=== PATIENT | female | born 1945 | race Caucasian/White ===

== ENCOUNTER → 2016-06-03 | Outpatient (CLI) | payer OTHER ==
[~2016-06-03] MED LIST: ALEN35TA6 PO; DICL100G7 TP; HYDR12.53 PO; IOHEXOL 300 MG/ML 100ML VIAL. IV ONE; RANI150C PO; SERT25TA PO
--- NOTE | 2016-06-03 15:01 | KCIC ---
PROCEDURE CT scan of the chest with contrast 06/03/2016 HISTORY Significant smoking history with right hilar prominence and suspicious right lower lobe abnormality seen on chest radiograph. TECHNIQUE After the intravenous administration of 95 cc of Omnipaque 300, contiguous, 5 millimeter axial sections were obtained through the chest. One or more of the following individualized dose reduction techniques were utilized for this study: 1. Automated exposure control. 2. Adjustment of the mA and/or kV according to patient size. 3. Use of iterative reconstruction technique. FINDINGS No previous studies are available for comparison. Mild to moderate atheromatous/atherosclerotic plaque formation is seen involving the thoracic aorta and its branches. The thoracic aorta is tortuous but tapers normally. There is a moderate-sized sliding hiatal hernia. The heart is borderline enlarged. Scattered coronary artery calcifications are seen. Enlarged right hilar lymph nodes are seen which measure 2.3 to 2.7 centimeters in size. Mildly enlarged mediastinal lymph nodes are seen which measure 1 to 2.5 centimeters in size. An irregular masslike opacity is seen involving the right lower lobe inferior and slightly lateral to the right hilum which measures 2.7 x 2.2 x 2.2 centimeters in transverse, AP and craniocaudal dimensions. This mass is concerning for bronchogenic carcinoma with spread to the right hilum and mediastinum. A 1.4 centimeter noncalcified mass is seen involving the inferolateral aspect of the right lower lobe. A 1.3 centimeter noncalcified mass is seen involving the lateral aspect of the right middle lobe. A 5 millimeter noncalcified nodule is seen involving the medial aspect of the right lower lobe. These are concerning for pulmonary metastasis. No additional pulmonary nodule is seen. Moderate bullous emphysematous changes are seen throughout both lungs. No area of consolidation is seen. No pneumothorax or pleural effusion is noted. Images through the upper abdomen demonstrate moderate atherosclerotic calcification involving the abdominal aorta. A 1.1 centimeter low attenuation lesion is seen involving the right adrenal gland. This likely represents an adrenal adenoma. A 1.5 centimeter area of nodularity is seen involving the left adrenal gland which may represent an adrenal adenoma. Degenerative changes are seen throughout the thoracic spine. IMPRESSION 2.7 centimeter masslike opacity is seen involving the right lower lobe. Enlarged right hilar and mediastinal lymph nodes are seen. These findings are concerning for bronchogenic carcinoma with spread to the right hilum and mediastinum. Three noncalcified nodule/masses are seen involving the right lower lobe and right middle lobe concerning for pulmonary metastasis. Electronically signed by: Daniel Sorto MD (Jun 03, 2016 14:59:55)
--- NOTE | 2016-06-03 15:18 | KCIC ---
Bilateral digital screening mammograms with CAD: HISTORY COMPARISON Comparison is made to previous studies dated 11/24/2014 and 08/13/2013. FINDINGS Breast density category B. The skin and nipples show no abnormalities. No abnormal lymph nodes are seen in the axilla. The breast parenchyma shows scattered fibroglandular density. There appears to be some focally increase in density in the central left breast on CC view. No definite correlate is seen on obliques view. Further evaluation however with additional coned compression CC view and lateral view and ultrasound is recommended. There are no other dominant masses, suspicious calcifications or architectural distortions. Benign appearing calcifications are present IMPRESSION Focally increased nodularity suggested centrally in the left breast on CC view. Recommend further evaluation with additional cone compression views and ultrasound. This study was interpreted with the benefit of Computerized Aided Detection (CAD). Mammography is not 100% sensitive in detecting breast cancer. Therefore, a self breast exam and a clinical breast exam are very important. A negative mammogram does not negate a clinically suspicious finding and should not result in a delay in biopsying a clinically suspicious abnormality. BI-RADS category 0: Incomplete. Additional imaging is recommended. This patient's information has been entered into a reminder system for the patient to be notified with the results of this examination and a target date for her next mammograms. Electronically signed by: Brittney Munoz MD (Jun 03, 2016 15:17:04)
== END | disposition home or self-care (01) ==
LOC: KCIC MAMMO 13:11
PROVIDERS: ATTEND Family Medicine
DX: Z12.31 Encounter for screening mammogram for malignant neoplasm of breast (principal)
CPT/HCPCS: 71260; G0202; Q9967; 77067

== ENCOUNTER → 2016-06-15 | Day surgery (SDC) | payer OTHER ==
[~2016-06-15] MED LIST changes: +ALBUTEROL SULFATE 2.5 MG/3 ML NEBU. NEB ONE; +FENTANYL PF 100 MCG/2 ML VIAL. IV PRN; +HYDROMORPHONE 2 MG/ML VIAL. IV PRN; -IOHEXOL 300 MG/ML 100ML VIAL. IV ONE; +IV RINGERS,LACTATED 1000ML 1,000 ML IV SCH; +LIDOCAINE 1% 1 ML SYRINGE. ID PRN; +MORPHINE SULFATE 2 MG/ML DISP.SYRIN. IV PRN; +ONDANSETRON PF 4 MG/2 ML VIAL. IV PRN; +PROCHLORPERAZINE 10 MG/2 ML VIAL. IV PRN
[2016-06-15 13:58] LABS: BASO # 0.1 x10^3/uL (0.0-0.2); BASO % 1 % (0-3); EOS % 4 % (0-3); HEMATOCRIT 42.1 % (36.0-47.0); HEMOGLOBIN 13.7 g/dL (12.0-15.5); LYMPH # 2.2 x10^3/uL (1.0-4.8); LYMPH % 31 % (24-48); MEAN CORPUSCULAR HEMOGLOBIN 28 pg (25-35); MEAN CORPUSCULAR HGB CONC 33 g/dL (31-37); MEAN CORPUSCULAR VOLUME 86 fL (79-100); MONO % 7 % (0-9); NEUT % 57 % (31-73); PLATELET COUNT 240 x10^3/uL (140-400); RED BLOOD COUNT 4.89 x10^6/uL (3.50-5.40); RED CELL DISTRIBUTION WIDTH 16.1 % (11.5-14.5); WHITE BLOOD COUNT 7.1 x10^3/uL (4.0-11.0)
[2016-06-15 14:05] LABS: INR 1.1 (0.8-1.1); PROTHROMBIN TIME PATIENT 13.7 SEC (11.7-14.0)
[2016-06-15 16:00] VITALS: BP 148/78
--- NOTE | 2016-06-15 20:44 | OP ---
DATE OF SURGERY: 06/15/2016 PROCEDURE: Bronchoscopy, forceps biopsies of right middle lobe bronchus lesion within the right middle lobe bronchus x 4. Lavage of the right side. INDICATIONS: The patient presented with chronic cough, abnormal CT revealing 2.7 cm mass involving the right lower lobe. There was enlargement of the right hilar and mediastinal lymph nodes undergoing diagnostic bronchoscopy. Risks, benefits, and alternatives reviewed with patient. She consented. SEDATION: Please see anesthesia's notes. DESCRIPTION OF PROCEDURE: Timeout was performed prior to sedation. Vital signs and O2 saturation were maintained within normal limits throughout the procedure. The bronchoscope was then passed through the left naris. The vocal cords were identified moving bilaterally without any dysfunction. Vocal cords were then anesthetized with a total of 5 mL of 4% lidocaine. The bronchoscope was passed through the vocal cords into the proximal trachea, which was normal. The distal trachea was likewise normal. The left segments and subsegments were all inspected. There was no endobronchial lesion. The right segments were inspected. There was mucus plugging within the basal segments. At the opening of the right middle lobe bronchus, there was endobronchial lesion, white and fungating in appearance. The scope was advanced through that site. Multiple biopsies utilizing forceps were performed with a total of 4. Lavage of the area was likewise performed. The patient tolerated the procedure well with no immediate complications. FINDINGS: 1. Normal vocal cords. 2. No endobronchial lesion on the left. 3. Endobronchial lesion within the right middle lobe segment, white and fungating in appearance. Multiple biopsies were performed. 4. Mucous plugging in the basal segments on the right. PLAN: We will await the results of the biopsies and the lavage fluid, suspect bronchogenic carcinoma. The patient tolerated the procedure well with no immediate complications. SUKH HAN MD DR: AYAKA/quentin JOB#: [id number] / [id number] LIZBETH Martinez MD
--- NOTE | 2016-06-17 14:38 | PATHOLOGY ---
CYTOPATHOLOGY REPORT CLINICAL HISTORY: Lung mass. See also [id number]. SPECIMEN(S) RECEIVED: A.Bronchoalveolar lavage, RML FINAL DIAGNOSIS: Right middle lobe bronchoalveolar lavage, ThinPrep: - No malignant cells identified. -Sparsely cellular specimen comprised of bronchial epithelial cells and few squamous epithelial cells and pulmonary macrophages within a background of lysed red blood cells and few inflammatory cells. (JPM:mgr; d/t: 06/17/16) PATHOLOGIST: Teddy Christianson M.D. REPORT ELECTRONICALLY SIGNED BY: Teddy Christianson M.D. DATE/TIME: 06/17/2016 14:15 GROSS PATHOLOGY: A. Bronchoalveolar lavage, RML: The specimen is submitted fixed, labeled "Kelsey Redman". Received by the Cytology Department is 40 mL of clear red fluid. One ThinPrep slide was prepared. (clt 06.16.2016) MS SQL DEVELOPER(S): MUMTAZ Morales([facility]) INITIAL CPT CODE(S): A; 41656 Professional services performed [place] [facility] [place] [address] Technical services performed by [facility] at [address] [place] [address], [address] [address]. PATIENT: KELSEY REDMAN /AGE: 912/31/1945 (Age: 70) SEX: F PATIENT #: [id number] ALT CASE #: SPECIMEN COLLECTION DATE: 06/15/2016 SPECIMEN RECEIVED DATE: 06/16/[address] [facility] [address] [place] [address], [address] [place] [address] PHONE: [phone] DIRECTOR: Steve Roblero M.D. * * * END OF REPORT * * *
--- NOTE | 2016-06-20 14:01 | PATHOLOGY ---
PATHOLOGY REPORT * * * * * * * * FINAL DIAGNOSIS: Bronchial biopsy, right middle lobe: - SMALL CELL CARCINOMA. SEE COMMENT. - Chronic bronchitis with focal squamous metaplasia. COMMENT: Sections of the right middle lobe bronchial biopsy reveal several segments of bronchial mucosa. There is chronic inflammation with focal squamous metaplasia. Two of the biopsy segments reveal a malignant epithelial neoplasm. The malignant cells are present in solid nests which undermine the surface metaplastic squamous epithelium. The malignant cells are of small to intermediate size. The malignant cells have a relatively high N/C ratio, and have scanty to small amounts of pale eosinophilic cytoplasm. The malignant cells possess rounded to ovoid nuclei having a finely dispersed chromatin with inconspicuous or small nucleoli. Mitotic figures are present. There is no evidence of keratinization or glandular differentiation. A panel of immunohistochemical stains is obtained and yields the following results: Cytokeratin 7: tumor cells positive Cytokeratin 5/6: tumor cells negative; surface metaplastic epithelium positive P63: tumor cells negative; surface metaplastic epithelium positive P40: tumor cells negative; surface metaplastic epithelium positive Napsin A: tumor cells negative CD56: tumor cells positive TTF-1: tumor cells positive The morphologic and immunophenotypic findings are supportive of the diagnosis of small cell carcinoma. The case is also examined by Dr. Duane Ken, who concurs with the diagnosis. The results are reported to Dr. Carrera on 06/20/16 at 2:00 PM. (JPM:; d/t: 06/20/16) Special Stains Performed: Napsin A, CK7, P40, CK5/6, P63, CD56, TTF-1. REPORT ELECTRONICALLY SIGNED BY: Teddy Christianson M.D. DATE/TIME: 06/20/2016 14:00 * * * * * * * * GROSS PATHOLOGY: The specimen is received in formalin, labeled "Shantell Redman and L BBX." Received is a 0.5 x 0.4 x 0.2 cm aggregate of haque-brown, rubbery, and irregular soft tissue fragments. The specimen is entirely submitted in cassette A1. (TTL; 06/16/2016) INITIAL CPT CODE(S): A; 87604, 05817, 19787, 62196, 18381, 13094, 74317, 00041 Professional services performed by [facility] [place] [address] Technical services performed by [facility] at [address] [place] [address], [address], [place] [address]. SPECIMEN(S) RECEIVED: A.Bronchial biopsy [facility] CLINICAL HISTORY: Lung nodule/ lung mass PATIENT: SHANTELL REDMAN /AGE: 912/31/1945 (Age: 70) PATIENT #: [id number] ALT CASE #: [id number] SPECIMEN COLLECTION DATE: 06/15/2016 SPECIMEN RECEIVED DATE: 06/16/2016 [facility] - [address] [place] [address] - PHONE: [phone] * * * END OF REPORT * * *
== END | disposition home or self-care (01) ==
LOC: SURG 12:48
PROVIDERS: ATTEND Internal Medicine Pulmonary Disease
DX: J98.4 Other disorders of lung (principal); I10 Essential (primary) hypertension; M19.90 Unspecified osteoarthritis, unspecified site; K21.9 Gastro-esophageal reflux disease without esophagitis; F41.9 Anxiety disorder, unspecified; F17.200 Nicotine dependence, unspecified, uncomplicated; F32.9 Major depressive disorder, single episode, unspecified; Z87.39 Personal history of other diseases of the musculoskeletal system and connective tissue; Z79.82 Long term (current) use of aspirin; Z79.01 Long term (current) use of anticoagulants
CPT/HCPCS: 31622; 31624; 36415; 85027; 85610; 85730; 87070; 87102; 87205; 88112; 88305; 88341; 88342; 94640; G0641

== ENCOUNTER → 2016-06-16 | Outpatient (CLI) | payer OTHER ==
[2016-06-15 16:00] VITALS: BP 148/78
[~2016-06-16] MED LIST changes: -ALBUTEROL SULFATE 2.5 MG/3 ML NEBU. NEB ONE; -FENTANYL PF 100 MCG/2 ML VIAL. IV PRN; -HYDROMORPHONE 2 MG/ML VIAL. IV PRN; -IV RINGERS,LACTATED 1000ML 1,000 ML IV SCH; -LIDOCAINE 1% 1 ML SYRINGE. ID PRN; +LIDOCAINE 2% PF Vial for OR 5 ML VIAL. ONE; -MORPHINE SULFATE 2 MG/ML DISP.SYRIN. IV PRN; -ONDANSETRON PF 4 MG/2 ML VIAL. IV PRN; -PROCHLORPERAZINE 10 MG/2 ML VIAL. IV PRN; +PROPOFOL 40 ML IV ONE
--- NOTE | 2016-06-16 12:13 | RAD ---
Exam performed: Nuclear medicine PET scan. History: [Lung mass history of significant smoking]. Date of service: 06/16/16. Comparison: CT chest with contrast from 06/03/16. Technique: Patient was injected 13.9 mCi of F-18 FDG intravenously and delayed whole-body images are obtained from the skull base to the mid thighs. Corresponding noncontrast enhanced images are obtained for the purposes of attenuation correction and anatomical correlation. Patient's fasting blood glucose level at the time of injection measures 116 mg/dL. Findings: There is a 1.3 cm pleural-based mass in the right upper lobe, axial image 155, series 3 demonstrating SUV value of 7.1. There is also a somewhat lobulated 2.5 cm mass in the right lower lobe demonstrating SUV value up to 8.6 (axial image 169, series 3), there are streaky linear opacity extending from this mass up to the enlarged right hilar mass/lymph node mass. There is also a 1.5 cm mass in the posterior right lower lobe at the costophrenic sulcus with increased SUV value of 6.9 (axial image 178, series 3). There is a right suprahilar lymph node measuring 2.0 cm demonstrating SUV value of 13.1. Large hilar mass or lymph node, the exact size of which is difficult to measure due to lack of IV contrast demonstrates SUV value of up to 8.7. The visualized portion of the brain appears normal. No hypermetabolic activity is seen. No hypermetabolic activity seen in the neck, abdomen or pelvis. The paranasal sinuses appear clear. No neck masses or fluid collections are seen. There are subcentimeter pretracheal and precarinal lymph nodes. Diffuse emphysematous changes are seen in the lungs. Coarse interstitial markings in both lung bases probably related to pulmonary fibrosis. These do not demonstrate any abnormal hypermetabolic activity on the PET scan. Mild atheromatous coronary calcification. No abdominal masses or fluid collections. Scattered stool in the colon. Diffuse spondylotic changes are seen involving the cervical, thoracic and lumbar spine. Impression: At least 3 hypermetabolic masses in the right lung with an enlarged hypermetabolic right hilar and suprahilar lymph nodes. Findings may be related to a primary pulmonary/hilar neoplasm with lung and gerald metastasis.
== END | disposition home or self-care (01) ==
LOC: PETSC 07:43
PROVIDERS: ATTEND Internal Medicine Pulmonary Disease
DX: C34.2 Malignant neoplasm of middle lobe, bronchus or lung (principal)
CPT/HCPCS: 78815; A9552; J2704

== ENCOUNTER → 2016-06-21 | Outpatient (CLI) | payer OTHER ==
[2016-06-15 16:00] VITALS: BP 148/78
[~2016-06-21] MED LIST changes: -LIDOCAINE 2% PF Vial for OR 5 ML VIAL. ONE; -PROPOFOL 40 ML IV ONE
--- NOTE | 2016-06-21 11:17 | RAD ---
DATE: 06/21/2016 EXAM: Diagnostic mammogram the left breast to include a left breast ultrasound 06/21/2016 HISTORY: Nodular density seen in the left breast on recent screening mammogram. COMPARISON: 06/03/2016 This study was interpreted with the benefit of Computerized Aided Detection (CAD). FINDINGS: Spot compression CC and 2 lateral digital mammograms of the left breast were obtained. Comparison study is dated 06/03/2016. The density compresses out to some degree on the spot compression mammogram. Further evaluation with left breast ultrasound is recommended. A Real-time ultrasound examination of the upper outer quadrant left breast was performed. Multiple images were obtained. Within the left breast at the 2:30 o'clock position and oval-shaped well-defined hypoechoic nodule is seen. This measures 9 mm in greatest diameter. It corresponds to the patient's mammographic abnormality. Its ultrasound appearance most likely represents a fibroadenoma. A repeat ultrasound of the left breast in 6 months is recommended to document stability. IMPRESSION: 9 mm probable fibroadenoma seen within the left breast at the 2:30 position which corresponds to the patient's mammographic abnormality. A repeat ultrasound left breast in 6 months is recommended to document stability of this finding. BI-RADS CATEGORY: 3 PROBABLY BENIGN FINDING(S)-SHORT INTERVAL FOLLOW-UP SUGGESTED RECOMMENDED FOLLOW-UP: 6M 6 MONTH FOLLOW-UP PQRS compliance statement: Patient information was entered into a reminder system with a target due date for a follow-up ultrasound of the left breast in 6 months. Assuming that the ultrasound finding is stable, the patient would be due for routine yearly screening mammogram on 06/03/2017. Mammography is a sensitive method for finding small breast cancers, but it does not detect them all and is not a substitute for careful clinical examination. A negative mammogram does not negate a clinically suspicious finding and should not result in delay in biopsying a clinically suspicious abnormality. "Our facility is accredited by the [employer] Mammography Program."
== END | disposition home or self-care (01) ==
LOC: KCIC MAMMO 09:16
PROVIDERS: ATTEND Family Medicine
DX: R92.8 Other abnormal and inconclusive findings on diagnostic imaging of breast (principal)
CPT/HCPCS: 76641; G0206; 77065

== ENCOUNTER → 2016-09-05 | Outpatient (CLI) | payer OTHER ==
[2016-06-15 16:00] VITALS: BP 148/78
[~2016-09-05] MED LIST changes: +IOHEXOL 300 MG/ML 100ML VIAL. IV ONE
--- NOTE | 2016-09-05 11:34 | KCIC ---
PROCEDURE CT chest with contrast. HISTORY Small cell lung cancer. Follow-up post chemotherapy. TECHNIQUE Helical CT imaging of the chest is performed after 90 cc Omnipaque 300 IV contrast. PQRS: One or more the following individualized dose reduction techniques were utilized for the study: 1. Automated exposure control. 2. Adjustment of the mA and/or kV according to patient size. 3. Use of iterative reconstruction technique. COMPARISON CT chest with contrast, June 03, 2016. FINDINGS Postsurgical change right thyroid. No axillary adenopathy. Subcentimeter mediastinal lymph nodes are stable. Coronary artery disease. Calcific aortic valve stenosis. Cardiac size upper limits of normal. No pericardial effusion. Small to moderate-sized hiatal hernia. Right hilar adenopathy is improved. The largest lymph node now measures 16 x 8 millimeters, image 28; previously 27 x 15 millimeters. No pleural effusion. The central airways are patent. There is moderate centrilobular and paraseptal emphysema. Nodule in the right middle lobe abutting the lateral pleural surface has decreased in size now measuring 10 x 6 millimeters, previously 13 x 9 millimeters. The 5 millimeter medial right lower lobe nodule is not significantly changed, allowing for differences in slice acquisition, image 37. The lobular mass in the right lower lobe has resolved. There is minimal parenchymal opacity in this location, image 39. Nodule in the lateral right lower lobe is mostly resolved, there is a 9 millimeter ground-glass opacity now seen in this location, image 46. No new pulmonary nodule is identified. Mild fatty infiltration of the liver. Left adrenal nodule has decreased in size. Right adrenal probable adenoma is stable. No compression fracture of the thoracic spine. There is degenerative spondylosis. No osteolytic or blastic lesion is identified. IMPRESSION 1. Right lower lobe mass has resolved. 2. Nodules in the right middle lobe and the lateral right lower lobe have decreased in size. Medial right lower lobe nodule is unchanged. 3. Right hilar adenopathy is improved. 4. Left adrenal nodule has decreased in size. This raises possibility of metastasis. 5. Moderate centrilobular and paraseptal emphysema. 6. Small to moderate size hiatal hernia. 7. Mild fatty infiltration of the liver. Electronically signed by: Jayden Tate MD (September 05, 2016 11:33:24)
== END | disposition home or self-care (01) ==
LOC: KCIC CT 09:53
PROVIDERS: ATTEND Internal Medicine Hematology & Oncology
DX: C34.90 Malignant neoplasm of unspecified part of unspecified bronchus or lung (principal); J43.9 Emphysema, unspecified; K44.9 Diaphragmatic hernia without obstruction or gangrene; K76.0 Fatty (change of) liver, not elsewhere classified
CPT/HCPCS: 71260; 82565; Q9967

== ENCOUNTER → 2016-12-05 | Outpatient (CLI) | payer OTHER ==
[2016-06-15 16:00] VITALS: BP 148/78
[~2016-12-05] MED LIST changes: +CONTRAST GIVEN MC PRN; +DICL100G18 TP; -DICL100G7 TP; +IOHEXOL 240 MG/ML 50ML VIAL. PO ONE; -IOHEXOL 300 MG/ML 100ML VIAL. IV ONE; +IOHEXOL 300 MG/ML 75 ML VIAL IV ONE
--- NOTE | 2016-12-05 14:17 | RAD ---
CT chest, abdomen and pelvis with IV contrast Indication: 70-year-old female with small cell carcinoma of lungs. Technique: CT chest, abdomen and pelvis with 75 mL of Omnipaque 350 mL and 50 mL of Omnipaque 240 P.O. with multi planar reformats. Comparison: Prior chest CT from 09/05/2016 Findings: CT chest: Left approach central venous catheter noted with its tear in the SVC. Partial thyroidectomy changes. No axillary adenopathy. Prominent but not pathologically enlarged mediastinal lymph nodes noted. The factory representative lymph node in the pretracheal space measures 8 mm in short axis, previously same. Stable right hilar lymph node measuring 1.8 x 1.0 cm, previously same. Heart is normal in size. Coronary artery calcifications noted. Atherosclerotic disease of the aortic arch noted. No pericardial or pleural effusion. Severe emphysematous changes seen within the lungs. Lung nodules as follows: -Stable 8 mm nodule in the right middle lobe (series 2 image 31). -Stable peripheral 9 mm nodule in the right middle lobe (series 2 images 33). CT abdomen/pelvis: Large sliding hiatal hernia. Liver is normal in morphology without focal hepatic lesion. Spleen within normal limits. No radiopaque gallstones. Pancreas within normal limits. Stable right adrenal nodule. Slight interval decrease in the size of left adrenal nodule measuring 9 mm, previously [address] from 06/03/2016. Kidneys show no hydronephrosis. Stable 6 mm low attenuating lesion within left kidney likely simple cyst. No retroperitoneal or pelvic adenopathy. No bowel obstruction. Uterus is present. No solid adnexal lesions. No free fluid in the pelvis. Bladder is within normal limits. Scattered atherosclerotic disease of aorta. No suspicious bony lesions. Impression: 1. Stable right middle lobe pulmonary nodules. 2. Stable right hilar lymph node. 3. Severe diffuse emphysematous changes. 4. Interval decrease in the size of left adrenal nodule. Stable right adrenal nodule. PQRS Compliance Statement: One or more of the following individualized dose reduction techniques were utilized for this examination: 1. Automated exposure control 2. Adjustment of the mA and/or kV according to patient size 3. Use of iterative reconstruction technique
== END | disposition home or self-care (01) ==
LOC: CT 09:03
PROVIDERS: ATTEND Internal Medicine Hematology & Oncology
DX: C34.91 Malignant neoplasm of unspecified part of right bronchus or lung (principal); D24.2 Benign neoplasm of left breast; I25.10 Atherosclerotic heart disease of native coronary artery without angina pectoris; I70.0 Atherosclerosis of aorta; J43.9 Emphysema, unspecified; K44.9 Diaphragmatic hernia without obstruction or gangrene; E27.8 Other specified disorders of adrenal gland; D70.8 Other neutropenia; N28.89 Other specified disorders of kidney and ureter; R91.8 Other nonspecific abnormal finding of lung field
CPT/HCPCS: 71260; 74177; Q9966; Q9967

== ENCOUNTER → 2017-01-04 | Outpatient (CLI) | payer OTHER ==
[2016-06-15 16:00] VITALS: BP 148/78
[~2017-01-04] MED LIST changes: -CONTRAST GIVEN MC PRN; -IOHEXOL 240 MG/ML 50ML VIAL. PO ONE; -IOHEXOL 300 MG/ML 75 ML VIAL IV ONE
--- NOTE | 2017-01-04 12:54 | RAD ---
Left upper extremity venous ultrasound, 01/04/2017: History: Arm and chest pain Duplex evaluation of the major veins in the left upper extremity was performed including grayscale, color-flow and spectral Doppler analysis. The left internal jugular, subclavian, axillary and paired brachial veins are patent. Patent cephalic and basilic veins are also evident. IMPRESSION: No sonographic evidence of deep vein thrombosis in the left upper extremity.
== END | disposition home or self-care (01) ==
LOC: US 11:49
PROVIDERS: ATTEND Internal Medicine Hematology & Oncology
DX: R07.9 Chest pain, unspecified (principal); M79.602 Pain in left arm
CPT/HCPCS: 93971

== ENCOUNTER → 2017-02-23 | Outpatient (CLI) | payer OTHER ==
[2016-06-15 16:00] VITALS: BP 148/78
--- NOTE | 2017-02-23 14:33 | RAD ---
EXAM: Left breast ultrasound. HISTORY: Six-month follow-up. COMPARISON: None. FINDINGS: Sonographic evaluation of the left breast was performed at the site of prior concern. At the 2:30 position, 3 cm from the nipple, a solid oval hypoechoic nodule measures 7 x 8 x 4 mm. This is stable to slightly decreased since the prior study. Internal flow is no longer seen on Doppler. This is likely a benign fibroadenoma. IMPRESSION: 1. BI-RADS Category 3: Probably benign findings. 2. The focus of concern can be followed with mammography and sonography with the patient returns in June 06, 2017.
== END | disposition home or self-care (01) ==
LOC: KCIC US 13:39
PROVIDERS: ATTEND Family Medicine
DX: N63.20 Unspecified lump in the left breast, unspecified quadrant (principal); F17.200 Nicotine dependence, unspecified, uncomplicated
CPT/HCPCS: 76641

== ENCOUNTER → 2017-03-06 | Outpatient (CLI) | payer OTHER ==
[2016-06-15 16:00] VITALS: BP 148/78
[~2017-03-06] MED LIST changes: +IOHEXOL 240 MG/ML 50ML VIAL. PO ONE; +IOHEXOL 300 MG/ML 100ML VIAL. IV ONE
--- NOTE | 2017-03-06 10:36 | RAD ---
EXAM: CT OF THE CHEST, ABDOMEN AND PELVIS WITH INTRAVENOUS CONTRAST. HISTORY: Small cell carcinoma of lung. TECHNIQUE: Computed tomography of the chest, abdomen and pelvis was performed after the intravenous administration of 75 mL Omnipaque 300. COMPARISON: 12/05/2016. FINDINGS: Bone windows reveal no suspicious lesions. A lymph node posteriorly along the right hilum has increased in size since the prior study. Transaxially it measures 14 x 13 mm as compared with 10 x 8 mm previously. Other small right hilar lymph nodes are unchanged. Lower right paratracheal lymph nodes are also stable. There is no pleural or pericardial effusion. The heart is not enlarged. There are atherosclerotic calcifications of the coronary arteries. Aortic valve calcifications are also noted. There is a large hiatal hernia. There is moderate to severe centrilobular emphysema. Interstitial line thickening is noted in the costophrenic angles on the right greater than left. An uncalcified pleural-based nodule in the right middle lobe measures 10 mm as compared with 8 mm previously. Another vaguely nodular opacity in the right costophrenic angle measures 9 mm and is not clearly changed. The right thyroid lobe is surgically absent. There is a subcentimeter cyst in the left kidney. The liver, gallbladder, pancreas, adrenal glands and spleen are unremarkable. There are no pathologically enlarged lymph nodes. Left colonic diverticulosis is mild. There is no obstruction or ascites. IMPRESSION: 1. A pleural-based right middle lobe nodule has increased in size and now measures 10 mm. 2. A right posterior hilar lymph node has also increased and now measures 14 mm as compared with 10 mm previously. 3. Moderate to severe centrilobular emphysema with interstitial lung disease in the bases. 4. Large hiatal hernia. *One or more of the following individualized dose reduction techniques were utilized for this examination: 1. Automated exposure control. 2. Adjustment of the mA and/or kV according to patient size. 3. Use of iterative reconstruction technique.
== END | disposition home or self-care (01) ==
LOC: CT 08:06
PROVIDERS: ATTEND Internal Medicine Hematology & Oncology
DX: C34.91 Malignant neoplasm of unspecified part of right bronchus or lung (principal); J84.9 Interstitial pulmonary disease, unspecified; K44.9 Diaphragmatic hernia without obstruction or gangrene; J43.2 Centrilobular emphysema; K57.30 Diverticulosis of large intestine without perforation or abscess without bleeding
CPT/HCPCS: 71260; 74177; Q9966; Q9967

== ENCOUNTER → 2017-08-25 | Outpatient (CLI) | payer OTHER ==
[~2017-08-25] MED LIST changes: -ALEN35TA6 PO; +CONTRAST GIVEN MC; -DICL100G18 TP; +HEPARIN PF 500 UNIT/5 ML DISP.SYRIN. IV; -HYDR12.53 PO; -IOHEXOL 240 MG/ML 50ML VIAL. PO ONE; -IOHEXOL 300 MG/ML 100ML VIAL. IV ONE; -RANI150C PO; -SERT25TA PO
[2017-08-25] MEDS: IOHEXOL 240 MG/ML 50ML VIAL. PO (10:27)
[2017-08-25] MEDS: IOHEXOL 300 MG/ML 100ML VIAL. IV (10:27)
== END | disposition home or self-care (01) ==
LOC: CT 10:43
DX: C34.91 Malignant neoplasm of unspecified part of right bronchus or lung (principal); J43.2 Centrilobular emphysema; K44.9 Diaphragmatic hernia without obstruction or gangrene; K57.30 Diverticulosis of large intestine without perforation or abscess without bleeding; K21.9 Gastro-esophageal reflux disease without esophagitis; Z87.891 Personal history of nicotine dependence
CPT/HCPCS: 71260; 74177; Q9966; Q9967

== ENCOUNTER → 2017-09-08 | Outpatient (CLI) | payer OTHER ==
[2017-09-08] MEDS: GADOBUTROL 7.5 MMOL/7.5 ML VIAL IV (12:00)
== END | disposition home or self-care (01) ==
LOC: KCIC MRI 11:20
DX: C79.31 Secondary malignant neoplasm of brain (principal); Z92.3 Personal history of irradiation
CPT/HCPCS: 70553; A9585

== ENCOUNTER 2017-11-11 12:53 | Inpatient (IN) | payer OTHER ==
[2017-11-11 13:37] LABS: ADD MAN DIFF? NO
[2017-11-11 13:41] LABS: BASO % 1 % (0-3); EOS # 0.6 x10^3/uL (0.0-0.7); EOS % 11 % (0-3); HEMATOCRIT 34.3 % (36.0-47.0); HEMOGLOBIN 11.7 g/dL (12.0-15.5); LYMPH # 0.6 x10^3/uL (1.0-4.8); LYMPH % 11 % (24-48); MEAN CORPUSCULAR HEMOGLOBIN 30 pg (25-35); MEAN CORPUSCULAR HGB CONC 34 g/dL (31-37); MEAN CORPUSCULAR VOLUME 87 fL (79-100); MONO # 0.7 x10^3/uL (0.0-1.1); MONO % 12 % (0-9); NEUT # 3.7 x10^3uL (1.8-7.7); NEUT % 66 % (31-73); PLATELET COUNT 239 x10^3/uL (140-400); RED BLOOD COUNT 3.95 x10^6/uL (3.50-5.40); RED CELL DISTRIBUTION WIDTH 15.9 % (11.5-14.5); WHITE BLOOD COUNT 5.7 x10^3/uL (4.0-11.0)
[2017-11-11 13:51] LABS: ANION GAP 7 (6-14); BLOOD UREA NITROGEN 8 mg/dL (7-20); BUN/CREATININE RATIO 11 (6-20); CALCIUM 8.9 mg/dL (8.5-10.1); CARBON DIOXIDE 27 mmol/L (21-32); CHLORIDE 105 mmol/L (98-107); CREATININE 0.7 mg/dL (0.6-1.0); GLUCOSE 92 mg/dL (70-99); POTASSIUM 3.9 mmol/L (3.5-5.1); SODIUM 139 mmol/L (136-145)
[2017-11-11 13:55] LABS: INR 1.2 (0.8-1.1); PROTHROMBIN TIME PATIENT 14.4 SEC (11.7-14.0)
[2017-11-11 13:57] LABS: ALBUMIN 3.1 g/dL (3.4-5.0); ALBUMIN/GLOBULIN RATIO 0.8 (1.0-1.7); ALK PHOS 103 U/L (46-116); ALT (SGPT) 16 U/L (14-59); AST (SGOT) 19 U/L (15-37); LIPASE 100 U/L (73-393); MAGNESIUM 1.9 mg/dL (1.8-2.4); TOTAL BILIRUBIN 0.6 mg/dL (0.2-1.0); TOTAL PROTEIN 7.2 g/dL (6.4-8.2)
[2017-11-11 14:00] LABS: TROPONINI < 0.017 ng/mL (0.000-0.055)
[2017-11-11 14:06] LABS: THYROID STIM HORMONE (TSH) 1.209 uIU/mL (0.358-3.74)
[2017-11-11 14:11] LABS: CKMB MASS < 0.5 ng/mL (0.0-3.6); CREATINE KINASE 32 U/L (26-192)
[2017-11-11 14:35] LABS: BILIRUBIN,URINE NEGATIVE (NEG); CLARITY,URINE CLEAR; GLUCOSE,URINE NEGATIVE (NEG); NITRITE,URINE NEGATIVE (NEG); PROTEIN,URINE NEGATIVE (NEG-TRACE)
[2017-11-11 14:45] LABS: COLOR,URINE STRAW
[2017-11-11 14:49] LABS: BACTERIA,URINE FEW /HPF (0-FEW); RBC,URINE 0 /HPF (0-2); SQUAMOUS EPITHELIAL CELL,UR FEW /LPF; WBC,URINE OCC /HPF (0-4)
[2017-11-11 16:37] LABS: D-DIMER 8.35 ug/mlFEU (0.00-0.50)
[2017-11-11] MEDS: IPRATRPIUM/ALBUTEROL 0.5/2.5MG 3 ML NEBU. NEB (19:25)
[2017-11-11] MEDS: cefTRIAXone IV Push 1 GM VIAL. IVP (20:17)
[2017-11-11] MEDS: ONDANSETRON PF 4 MG/2 ML VIAL. IV (20:39)
[2017-11-11] MEDS: BUDESONIDE 0.5 MG/2 ML NEBU. NEB (21:30)
[2017-11-11] MEDS: ENOXAPARIN 40 MG/0.4 ML SYRINGE. SQ (21:43)
[2017-11-12] MEDS: IPRATRPIUM/ALBUTEROL 0.5/2.5MG 3 ML NEBU. NEB ×4 (07:08→19:06)
[2017-11-12] MEDS: BUDESONIDE 0.5 MG/2 ML NEBU. NEB ×2 (07:08→19:06)
[2017-11-12] MEDS: PANTOPRAZOLE 40 MG TABLET.DR. PO (08:17)
[2017-11-12] MEDS: IV NORMAL SALINE 1000ML BAG 1,000 ML IV ×4 (10:00→20:55)
[2017-11-12] MEDS: PIPERACILLIN/TAZOBACTAM 3.375 GM in IV NORMAL SALINE 50ML 50 ML IV (18:00)
[2017-11-12] MEDS: ENOXAPARIN 40 MG/0.4 ML SYRINGE. SQ (20:57)
[2017-11-13] MEDS: PIPERACILLIN/TAZOBACTAM 3.375 GM in IV NORMAL SALINE 50ML 50 ML IV ×4 (00:52→18:22)
[2017-11-13 03:04] LABS: ADD MAN DIFF? NO
[2017-11-13 03:07] LABS: BASO % 1 % (0-3); EOS # 0.4 x10^3/uL (0.0-0.7); EOS % 8 % (0-3); HEMATOCRIT 28.8 % (36.0-47.0); HEMOGLOBIN 9.9 g/dL (12.0-15.5); LYMPH # 0.5 x10^3/uL (1.0-4.8); LYMPH % 11 % (24-48); MEAN CORPUSCULAR HEMOGLOBIN 30 pg (25-35); MEAN CORPUSCULAR HGB CONC 34 g/dL (31-37); MEAN CORPUSCULAR VOLUME 88 fL (79-100); MONO # 0.6 x10^3/uL (0.0-1.1); MONO % 12 % (0-9); NEUT # 3.4 x10^3uL (1.8-7.7); NEUT % 68 % (31-73); PLATELET COUNT 205 x10^3/uL (140-400); RED BLOOD COUNT 3.28 x10^6/uL (3.50-5.40); RED CELL DISTRIBUTION WIDTH 16.2 % (11.5-14.5)
[2017-11-13 03:32] LABS: ANION GAP 5 (6-14); BLOOD UREA NITROGEN 8 mg/dL (7-20); CALCIUM 8.2 mg/dL (8.5-10.1); CARBON DIOXIDE 27 mmol/L (21-32); CHLORIDE 108 mmol/L (98-107); CREATININE 0.8 mg/dL (0.6-1.0); GFR 71.1; GLUCOSE 104 mg/dL (70-99); POTASSIUM 3.9 mmol/L (3.5-5.1); SODIUM 140 mmol/L (136-145)
[2017-11-13] MEDS: ACETAMINOPHEN 325 MG TABLET. PO ×2 (07:38→16:32)
[2017-11-13] MEDS: PANTOPRAZOLE 40 MG TABLET.DR. PO (07:38)
[2017-11-13] MEDS: IV NORMAL SALINE 1000ML BAG 1,000 ML IV ×2 (07:42→18:23)
[2017-11-13] MEDS: BUDESONIDE 0.5 MG/2 ML NEBU. NEB ×2 (07:49→20:26)
[2017-11-13] MEDS: IPRATRPIUM/ALBUTEROL 0.5/2.5MG 3 ML NEBU. NEB ×4 (07:50→20:26)
[2017-11-13] MEDS: fentaNYL PF VIAL 100 MCG/2 ML VIAL IV ×2 (18:34→22:10)
[2017-11-13] MEDS ORDERED: KETOROLAC 30 MG/ML INJ. IV (18:45)
[2017-11-13] MEDS: ENOXAPARIN 40 MG/0.4 ML SYRINGE. SQ (21:23)
[2017-11-14] MEDS: PIPERACILLIN/TAZOBACTAM 3.375 GM in IV NORMAL SALINE 50ML 50 ML IV ×4 (00:41→20:55)
[2017-11-14] MEDS: fentaNYL PF VIAL 100 MCG/2 ML VIAL IV (02:11)
[2017-11-14 06:05] LABS: ADD MAN DIFF? NO
[2017-11-14 06:08] LABS: BASO % 1 % (0-3); EOS # 0.6 x10^3/uL (0.0-0.7); EOS % 12 % (0-3); HEMATOCRIT 30.4 % (36.0-47.0); HEMOGLOBIN 10.4 g/dL (12.0-15.5); LYMPH # 0.5 x10^3/uL (1.0-4.8); LYMPH % 9 % (24-48); MEAN CORPUSCULAR HEMOGLOBIN 30 pg (25-35); MEAN CORPUSCULAR HGB CONC 34 g/dL (31-37); MEAN CORPUSCULAR VOLUME 88 fL (79-100); MONO # 0.5 x10^3/uL (0.0-1.1); MONO % 9 % (0-9); NEUT # 3.5 x10^3uL (1.8-7.7); NEUT % 69 % (31-73); PLATELET COUNT 227 x10^3/uL (140-400); RED BLOOD COUNT 3.47 x10^6/uL (3.50-5.40); RED CELL DISTRIBUTION WIDTH 16.8 % (11.5-14.5); WHITE BLOOD COUNT 5.1 x10^3/uL (4.0-11.0)
[2017-11-14 06:40] LABS: ANION GAP 8 (6-14); BLOOD UREA NITROGEN 6 mg/dL (7-20); CALCIUM 8.4 mg/dL (8.5-10.1); CARBON DIOXIDE 27 mmol/L (21-32); CHLORIDE 105 mmol/L (98-107); CREATININE 0.7 mg/dL (0.6-1.0); GLUCOSE 98 mg/dL (70-99); SODIUM 140 mmol/L (136-145)
[2017-11-14] MEDS: BUDESONIDE 0.5 MG/2 ML NEBU. NEB ×2 (07:51→19:22)
[2017-11-14] MEDS: IPRATRPIUM/ALBUTEROL 0.5/2.5MG 3 ML NEBU. NEB ×4 (07:51→19:22)
[2017-11-14] MEDS: PANTOPRAZOLE 40 MG TABLET.DR. PO (09:07)
[2017-11-14] MEDS: ACETAMINOPHEN 325 MG TABLET. PO ×2 (09:07→17:33)
[2017-11-14] MEDS: IV NORMAL SALINE 1000ML BAG 1,000 ML IV (15:12)
[2017-11-14] MEDS: ENOXAPARIN 40 MG/0.4 ML SYRINGE. SQ (20:55)
[2017-11-15] MEDS: PIPERACILLIN/TAZOBACTAM 3.375 GM in IV NORMAL SALINE 50ML 50 ML IV ×3 (01:56→13:34)
[2017-11-15] MEDS: ACETAMINOPHEN 325 MG TABLET. PO ×2 (02:01→10:10)
[2017-11-15 06:37] LABS: ADD MAN DIFF? NO
[2017-11-15 06:58] LABS: ANION GAP 7 (6-14); BLOOD UREA NITROGEN 7 mg/dL (7-20); CALCIUM 8.5 mg/dL (8.5-10.1); CARBON DIOXIDE 27 mmol/L (21-32); CHLORIDE 108 mmol/L (98-107); CREATININE 0.7 mg/dL (0.6-1.0); GLUCOSE 86 mg/dL (70-99); POTASSIUM 3.8 mmol/L (3.5-5.1); SODIUM 142 mmol/L (136-145)
[2017-11-15 07:04] LABS: BASO % 1 % (0-3); EOS # 0.6 x10^3/uL (0.0-0.7); EOS % 12 % (0-3); HEMOGLOBIN 9.9 g/dL (12.0-15.5); LYMPH # 0.5 x10^3/uL (1.0-4.8); LYMPH % 10 % (24-48); MEAN CORPUSCULAR HEMOGLOBIN 30 pg (25-35); MEAN CORPUSCULAR HGB CONC 34 g/dL (31-37); MEAN CORPUSCULAR VOLUME 88 fL (79-100); MONO # 0.5 x10^3/uL (0.0-1.1); MONO % 10 % (0-9); NEUT # 3.3 x10^3uL (1.8-7.7); NEUT % 68 % (31-73); PLATELET COUNT 229 x10^3/uL (140-400); RED BLOOD COUNT 3.31 x10^6/uL (3.50-5.40); RED CELL DISTRIBUTION WIDTH 16.3 % (11.5-14.5); WHITE BLOOD COUNT 4.9 x10^3/uL (4.0-11.0)
[2017-11-15] MEDS: BUDESONIDE 0.5 MG/2 ML NEBU. NEB (07:29)
[2017-11-15] MEDS: IPRATRPIUM/ALBUTEROL 0.5/2.5MG 3 ML NEBU. NEB ×3 (07:29→14:52)
[2017-11-15] MEDS: PANTOPRAZOLE 40 MG TABLET.DR. PO (10:10)
[2017-11-15] MEDS ORDERED: LIDOCAINE 1% PF 2 ML VIAL. ×2 (13:48→14:00)
[2017-11-15] MEDS: methylPREDNISolone ACETATE 80 MG/ML VIAL. INJ (14:00)
== END 2017-11-15 17:17 | disposition home or self-care (01) | DRG 177 ==
LOC: 6 SOUTH 17:39 → ER 12:53 → 6 SOUTH 16:19
PROC: 3E0U33Z Introduction of Anti-inflammatory into Joints, Percutaneous Approach (ICD-10-PCS; principal; 2017-11-15)
DX: J69.0 Pneumonitis due to inhalation of food and vomit (principal); J96.01 Acute respiratory failure with hypoxia; C34.90 Malignant neoplasm of unspecified part of unspecified bronchus or lung; C79.31 Secondary malignant neoplasm of brain; M70.61 Trochanteric bursitis, right hip; I10 Essential (primary) hypertension; M19.90 Unspecified osteoarthritis, unspecified site; F41.9 Anxiety disorder, unspecified; I27.20 Pulmonary hypertension, unspecified; J84.10 Pulmonary fibrosis, unspecified; K21.9 Gastro-esophageal reflux disease without esophagitis; F32.9 Major depressive disorder, single episode, unspecified; E27.8 Other specified disorders of adrenal gland; I95.1 Orthostatic hypotension; D72.1 Eosinophilia; J44.9 Chronic obstructive pulmonary disease, unspecified; M17.0 Bilateral primary osteoarthritis of knee; D64.9 Anemia, unspecified; E89.0 Postprocedural hypothyroidism; L27.0 Generalized skin eruption due to drugs and medicaments taken internally; T45.1X5A Adverse effect of antineoplastic and immunosuppressive drugs, initial encounter; S76.011A Strain of muscle, fascia and tendon of right hip, initial encounter; W01.0XXA Fall on same level from slipping, tripping and stumbling without subsequent striking against object, initial encounter; Y92.009 Unspecified place in unspecified non-institutional (private) residence as the place of occurrence of the external cause; Y93.G3 Activity, cooking and baking; Y99.8 Other external cause status; Z88.1 Allergy status to other antibiotic agents; Z88.3 Allergy status to other anti-infective agents; Z88.8 Allergy status to other drugs, medicaments and biological substances; Z88.6 Allergy status to analgesic agent; Z92.3 Personal history of irradiation; Z92.21 Personal history of antineoplastic chemotherapy; Z87.11 Personal history of peptic ulcer disease; Z87.891 Personal history of nicotine dependence; Z82.0 Family history of epilepsy and other diseases of the nervous system; Z80.9 Family history of malignant neoplasm, unspecified; Z83.3 Family history of diabetes mellitus
CPT/HCPCS: 36415; 70450; 71045; 71275; 73502; 80048; 80053; 81001; 82553; 83690; 83735; 84443; 84484; 85025; 85379; 85610; 87040; 93005; 93306; 94618; 94640; 94760; 97110-GP; 97116-GP; 97162-GP; 97165-GO; 97530-GO; 99285; 99285-25; J0696; J1040; J1650; J2405; J2543; J3010; J7030; J7620; J7626

== ENCOUNTER → 2018-01-12 | Outpatient (CLI) | payer OTHER ==
[2017-11-15 15:00] VITALS: BP 127/77
[~2018-01-12] MED LIST changes: +ALEN35TA6 PO; +AMOX500C PO; +CHOL100013 PO; +CIME200T6 PO; -CONTRAST GIVEN MC; +CONTRAST GIVEN. MC PRN; +DICL100G18 TP; +DRON5CAP PO; -HEPARIN PF 500 UNIT/5 ML DISP.SYRIN. IV; +HYDR12.53 PO; +IOHEXOL 300 MG/ML 100ML VIAL. IV ONE; +MECL25TA3 PO; +NIVO100V IV; +OMEG1CAP30 PO; +RANI150C PO; +SERT100T PO; +SERT25TA PO; +VALA500T5 PO
--- NOTE | 2018-01-13 08:31 | RAD ---
Examination: CT chest with IV contrast HISTORY: History of lung cancer follow-up, restaging COMPARISON: 11/11/2017 TECHNIQUE: Axial CT images of chest were performed with IV contrast. Coronal and sagittal reformats are performed Exposure: One or more of the following individualized dose reduction techniques were utilized for this examination: 1. Automated exposure control 2. Adjustment of the mA and/or kV according to patient size 3. Use of iterative reconstruction technique FINDINGS: The visualized thyroid gland grossly appears unremarkable. Central airways are patent. Coronary artery calcifications identified. Moderate aortic atherosclerosis. Mild cardiomegaly. Moderate-sized hiatal hernia is identified. Small mediastinal lymph nodes identified the largest measuring 1 cm in the pretracheal region. Diffuse bilateral severe lung emphysematous changes again identified. There is diffuse prominent appearing reticular interstitial lung markings extending from the right hilum and extending into the suprahilar in the infrahilar region of the right middle lobe and right lower lobe of the lung with mild bronchiectatic changes. Minimal interstitial prominence identified in the right hilum. No evidence of pleural effusion or pneumothorax. The visualized liver, spleen, adrenals grossly appears unremarkable Moderate degenerative changes thoracic spine. IMPRESSION: 1. Diffuse bilateral severe lung emphysematous changes again identified. There is diffuse prominent appearing reticular interstitial lung markings extending from the right hilum and extending into the suprahilar in the infrahilar region of the right middle lobe and right lower lobe of the lung with mild bronchiectatic changes. This could be posttherapeutic changes. However recurrence of malignancy is not completely excluded. Recommend PET/CT scan for further evaluation. 2. Moderate hiatal hernia. 3. Coronary artery calcifications. Electronically signed by: Evelio Waterman MD (01/13/2018 8:28 AM) [facility]
== END | disposition home or self-care (01) ==
LOC: CT 09:57
PROVIDERS: ATTEND Internal Medicine Hematology & Oncology
DX: K44.9 Diaphragmatic hernia without obstruction or gangrene (principal); I25.10 Atherosclerotic heart disease of native coronary artery without angina pectoris; R59.0 Localized enlarged lymph nodes; I70.0 Atherosclerosis of aorta; K21.9 Gastro-esophageal reflux disease without esophagitis; J44.9 Chronic obstructive pulmonary disease, unspecified; Z85.118 Personal history of other malignant neoplasm of bronchus and lung; Z92.3 Personal history of irradiation; Z87.39 Personal history of other diseases of the musculoskeletal system and connective tissue; Z92.21 Personal history of antineoplastic chemotherapy; Z88.1 Allergy status to other antibiotic agents; Z88.3 Allergy status to other anti-infective agents; Z88.4 Allergy status to anesthetic agent; Z88.6 Allergy status to analgesic agent; Z88.8 Allergy status to other drugs, medicaments and biological substances; Z80.0 Family history of malignant neoplasm of digestive organs; Z82.0 Family history of epilepsy and other diseases of the nervous system; Z83.3 Family history of diabetes mellitus
CPT/HCPCS: 71260; Q9967

== ENCOUNTER → 2018-03-19 | Outpatient (CLI) | payer OTHER ==
[2017-11-15 15:00] VITALS: BP 127/77
[~2018-03-19] MED LIST changes: +ALBU2.5V14 NEB; -CONTRAST GIVEN. MC PRN; +GUAI600T47 PO; -HYDR12.53 PO; +HYDR12.575 PO
--- NOTE | 2018-03-19 11:05 | RAD ---
CT Chest with contrast 03/19/2018 Clinical Indication: Small cell carcinoma the right lung, follow-up Comparison: CT chest 01/12/2018, CTA chest 11/03/2017, CT chest 08/25/2017 Technique: Multiple CT images of the chest were obtained without contrast. *One or more of the following individualized dose reduction techniques were utilized for this examination: 1. Automated exposure control. 2. Adjustment of the mA and/or kV according to patient size. 3. Use of iterative reconstruction technique. Findings: Heart size is normal without significant pericardial effusion. Left subclavian chest port terminating in the superior cavoatrial junction. Coronary artery calcifications. Mild calcified plaque of the thoracic aorta. No axillary or left hilar lymphadenopathy. No significant change in mild prominent mediastinal and right hilar lymph nodes without pathologic enlargement by CT size criteria. No significant change in right midlung/paramediastinal consolidation with bronchiectasis consistent with posttreatment fibrosis. Severe upper lobe predominant emphysema with bibasilar predominant subpleural reticular opacities and honeycombing with associated traction bronchiectasis. No pleural effusion or pneumothorax. There are no destructive osseous lesions. There is a moderate sliding-type hiatal hernia. Limited images of the upper abdomen: Grossly unremarkable. IMPRESSION: 1. No significant change in right midlung/paramediastinal post therapeutic fibrosis without evidence of local recurrence. 2. Stable mildly prominent thoracic lymph nodes with no evidence of thoracic gerald metastatic disease. 3. Fibrosis and severe emphysema which can be seen with combined pulmonary fibrosis and emphysema (CPFE). Electronically signed by: Dalton Calabrese MD (03/19/2018 11:02 AM) [id number]
== END | disposition home or self-care (01) ==
LOC: CT 08:53
PROVIDERS: ATTEND Internal Medicine Hematology & Oncology
DX: J43.8 Other emphysema (principal); J47.9 Bronchiectasis, uncomplicated; K44.9 Diaphragmatic hernia without obstruction or gangrene; I70.0 Atherosclerosis of aorta; I25.10 Atherosclerotic heart disease of native coronary artery without angina pectoris; Z85.118 Personal history of other malignant neoplasm of bronchus and lung
CPT/HCPCS: 71260; Q9967

== ENCOUNTER → 2018-04-12 | Outpatient (CLI) | payer OTHER ==
[2017-11-15 15:00] VITALS: BP 127/77
[~2018-04-12] MED LIST changes: +ESOM20CA PO; +GADOBUTROL 10 MMOL/10 ML VIAL IV ONE; -IOHEXOL 300 MG/ML 100ML VIAL. IV ONE
--- NOTE | 2018-04-12 12:56 | KCIC ---
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 History of primary lung cancer. TECHNIQUE: Multiplanar multi-weighted MRI of the brain and brainstem was performed without and with intravenous contrast using the general brain protocol. Contrast information: 7 mL Gadolinium based contrast COMPARISON: MRI brain September 08, 2017 FINDINGS: The scalp and calvarium are normal. The superior sagittal sinus demonstrates normal venous flow. The corpus callosum is normal in shape and signal intensity. The posterior fossa is unremarkable. The pituitary and sella are normal. The brainstem and craniocervical junction are unremarkable. There are T2/FLAIR signal hyperintense foci in the periventricular and subcortical white matter with areas of confluence most suggestive of moderate chronic small vessel ischemic changes. There is a persistent subtle linear area of enhancement in the left temporal lobe along the anterior margin of the previously seen left temporal lobe mass. This may represent enhancement within a vessel versus reactive changes. No masslike enhancement visualized. There is no significant residual vasogenic edema. No new enhancing lesion is identified. Diffusion weighted images reveal no hyperintensities to suggest acute cerebral infarction. The susceptibility weighted sequences reveal no evidence of acute or chronic hemorrhage. The ventricles are normal in size and position without evidence of hydrocephalus. The paranasal sinuses are normal. The visualized portions of the mastoids are unremarkable. The orbits appear normal. Normal flow voids are demonstrated in the carotid arteries and basilar artery. IMPRESSION: Minimal faint linear enhancement along the anterior margin of the previously seen mass in the left temporal lobe. Findings favor enhancement within a vessel versus reactive changes. No evidence for recurrent or residual disease. No new enhancing lesions are identified. Electronically signed by: Yudy Quezada MD (04/12/2018 12:52 PM) [id number]
== END | disposition home or self-care (01) ==
LOC: KCIC MRI 10:31
PROVIDERS: ATTEND Internal Medicine Hematology & Oncology
DX: J44.9 Chronic obstructive pulmonary disease, unspecified (principal); Z85.118 Personal history of other malignant neoplasm of bronchus and lung; Z85.841 Personal history of malignant neoplasm of brain
CPT/HCPCS: 70553; A9585

== ENCOUNTER → 2018-07-05 | Outpatient (CLI) | payer OTHER ==
[2017-11-15 15:00] VITALS: BP 127/77
[~2018-07-05] MED LIST changes: +APIX5TAB PO; -GADOBUTROL 10 MMOL/10 ML VIAL IV ONE; +IOHEXOL 300 MG/ML 100ML VIAL. IV ONE
--- NOTE | 2018-07-05 09:53 | RAD ---
PQRS Compliance statement: One or more of the following individualized dose reduction techniques were utilized for this examination: 1. Automated exposure control. 2. Adjustment of the mA and/or kV according to patient size. 3. Use of iterative reconstruction technique. Indication:F/U LUNG CA INJ 75ML OMNI 300 PREV SENT TECHNIQUE: CT chest with IV contrast with multiplanar reformats. COMPARISON: 03/19/2018 FINDINGS: Status post partial right thyroidectomy. Heart is normal in size. No pericardial or pleural effusion. Mild atherosclerotic disease seen of the thoracic aorta. No enlarged axillary or mediastinal or hilar adenopathy. New eccentric filling defect is seen in proximal pulmonary arteries supplying left lower lobe. Moderate diffuse emphysema is again seen with honeycombing in the bilateral lower lobes right more than left. No masslike lesion seen. Moderate sliding hiatal hernia. Visualized sections through the liver, spleen, gallbladder, pancreas, adrenals and kidneys within normal limits. No suspicious bony lesion. IMPRESSION: 1. Moderate emphysema with diffuse fibrosis right more than left. Findings may be secondary to postradiation changes with superimposed interstitial lung disease, UIP pattern. 2. No apparent evidence of masslike lesion in the right lung. Continued service recommended. 3. Likely chronic PE the proximal artery supplying left lower lobe. Electronically signed by: oCry Guzman DO (07/05/2018 9:50 AM) [facility]
== END | disposition home or self-care (01) ==
LOC: CT 10:49
PROVIDERS: ATTEND Internal Medicine Hematology & Oncology
DX: C34.91 Malignant neoplasm of unspecified part of right bronchus or lung (principal); J43.9 Emphysema, unspecified; J84.10 Pulmonary fibrosis, unspecified; K44.9 Diaphragmatic hernia without obstruction or gangrene; I70.0 Atherosclerosis of aorta; E89.0 Postprocedural hypothyroidism
CPT/HCPCS: 71260; Q9967

== ENCOUNTER 2018-07-06 15:29 | Emergency (ER) | payer OTHER ==
[~2018-07-06] VITALS: Ht 165.1 cm; Wt 72.1 kg
[~2018-07-06 15:29] MED LIST changes: -APIX5TAB PO; -IOHEXOL 300 MG/ML 100ML VIAL. IV ONE
[2018-07-06] MEDS ORDERED: IV NORMAL SALINE 1000ML BAG 1,000 ML IV ONE (16:15)
[2018-07-06] MEDS ORDERED: APIX5TAB PO ×2 (16:24→16:25)
--- NOTE | 2018-07-06 16:26 | PHYS DOC ---
Past Medical History Past Medical History: Cancer, Hypertension Additional Past Medical Histor: SMALL CELL LUNG CA Past Surgical History: Other Additional Past Surgical Histo: thyroidectomy,port placement L chest Alcohol Use: None Drug Use: None Adult General Chief Complaint Chief Complaint: DIZZY/LIGHT HEADED [facility] HPI Patient is a 72 year old female who presents with a complaint of hypotension while she was at her oncologist office today. The patient was sent here from Dr. Andrea's office for evaluation and management of her hypertension. The patient states that she had gotten dizzy and lightheaded at the office and when they took her blood pressure they did give her a liter of fluids. The patient states that she is feeling fine currently. She states that she had not had much to drink yesterday due to the fact that she had had a CT scan and that she had a smoothie with ice cream and it did not sit well and had a very large episode of diarrhea. The patient thinks that it just stridor out and caused the dizziness. The patient states that she was also very nervous about getting the results of her tests and felt like that contributed to her condition as well. She denies chest pain, current dizziness or headache. She denies nausea or vomiting. She states that it was a normal stool with no blood or mucus noted. Review of Systems Review of Systems Constitutional: Denies fever or chills [] Eyes: Denies change in visual acuity, redness, or eye pain [] HENT: Denies nasal congestion or sore throat [] Respiratory: Denies cough or shortness of breath [] Cardiovascular: No additional information not addressed in HPI [] GI: Denies abdominal pain, nausea, vomiting, bloody stools or diarrhea [] : Denies dysuria or hematuria [] Musculoskeletal: Denies back pain or joint pain [] Integument: Denies rash or skin lesions [] Neurologic: See history of present illness Endocrine: Denies polyuria or polydipsia [] All other systems were reviewed and found to be within normal limits, except as documented in this note. Current Medications Current Medications Current Medications Medications (Trade) Dose Ordered Sig/Argenis Start Time Stop Time Status Last Admin Dose Admin Apixaban (Eliquis) 10 mg 1X ONCE 07/06/18 17:00 07/06/18 17:01 DC 07/06/18 17:13 10 MG Sodium Chloride 1,000 ml @ 1,000 mls/hr 1X ONCE 07/06/18 16:15 07/06/18 17:14 DC 07/06/18 16:50 1,000 MLS/HR Allergies Allergies Allergies Coded Allergies Type Severity Reaction Last Updated Verified bacitracin Allergy Intermediate 04/26/17 Yes neomycin Allergy Intermediate 04/26/17 Yes polymyxin B Allergy Intermediate 04/26/17 Yes propoxyphene Allergy Intermediate 04/26/17 Yes aspirin Adverse Reaction Mild vomiting 04/27/17 Yes Physical Exam Physical Exam Constitutional: Well developed, well nourished, no acute distress, non-toxic appearance. [] HENT: Normocephalic, atraumatic, bilateral external ears normal, oropharynx moist, no oral exudates, nose normal. [] Eyes: PERRLA, EOMI, conjunctiva normal, no discharge. [] Neck: Normal range of motion, no tenderness, supple, no stridor. [] Cardiovascular:Heart rate regular rhythm, no murmur [] Lungs & Thorax: Bilateral breath sounds clear to auscultation [] Abdomen: Bowel sounds normal, soft, no tenderness, no masses, no pulsatile masses. [] Skin: Warm, dry, no erythema, no rash. [] Back: No tenderness, no CVA tenderness. [] Extremities: No tenderness, no cyanosis, no clubbing, ROM intact, no edema. [] Neurologic: Alert and oriented X 3, normal motor function, normal sensory function, no focal deficits noted. [] Psychologic: Affect normal, judgement normal, mood normal. [] Current Patient Data Vital Signs Vital Signs Date Time Temp Pulse Resp B/P (MAP) Pulse Ox O2 Delivery O2 Flow Rate FiO2 07/06/18 18:00 88 26 100 07/06/18 15:29 97.4 108/68 (81) Room Air 4.0 97.4 Lab Values Laboratory Tests Test 07/06/18 15:45 07/06/18 18:40 White Blood Count 6.9 x10^3/uL (4.0-11.0) Red Blood Count 3.84 x10^6/uL (3.50-5.40) Hemoglobin 11.3 g/dL (12.0-15.5) L Hematocrit 34.2 % (36.0-47.0) L Mean Corpuscular Volume 89 fL (79-100) Mean Corpuscular Hemoglobin 30 pg (25-35) Mean Corpuscular Hemoglobin Concent 33 g/dL (31-37) Red Cell Distribution Width 14.3 % (11.5-14.5) Platelet Count 248 x10^3/uL (140-400) Neutrophils (%) (Auto) 73 % (31-73) Lymphocytes (%) (Auto) 12 % (24-48) L Monocytes (%) (Auto) 8 % (0-9) Eosinophils (%) (Auto) 6 % (0-3) H Basophils (%) (Auto) 1 % (0-3) Neutrophils # (Auto) 5.0 x10^3uL (1.8-7.7) Lymphocytes # (Auto) 0.8 x10^3/uL (1.0-4.8) L Monocytes # (Auto) 0.5 x10^3/uL (0.0-1.1) Eosinophils # (Auto) 0.4 x10^3/uL (0.0-0.7) Basophils # (Auto) 0.0 x10^3/uL (0.0-0.2) Sodium Level 142 mmol/L (136-145) Potassium Level 4.0 mmol/L (3.5-5.1) Chloride Level 106 mmol/L (98-107) Carbon Dioxide Level 27 mmol/L (21-32) Anion Gap 9 (6-14) Blood Urea Nitrogen 15 mg/dL (7-20) Creatinine 0.8 mg/dL (0.6-1.0) Estimated GFR (Cockcroft-Gault) 70.9 BUN/Creatinine Ratio 19 (6-20) Glucose Level 114 mg/dL (70-99) H Calcium Level 9.2 mg/dL (8.5-10.1) Total Bilirubin 0.4 mg/dL (0.2-1.0) Aspartate Amino Transferase (AST) 16 U/L (15-37) Alanine Aminotransferase (ALT) 11 U/L (14-59) L Alkaline Phosphatase 95 U/L (46-116) Total Protein 7.2 g/dL (6.4-8.2) Albumin 3.1 g/dL (3.4-5.0) L Albumin/Globulin Ratio 0.8 (1.0-1.7) L Urine Collection Type Void Urine Color Yellow Urine Clarity Clear Urine pH 6.0 Urine Specific Saxis 1.015 Urine Protein Negative mg/dL (NEG-TRACE) Urine Glucose (UA) Negative mg/dL (NEG) Urine Ketones (Stick) Negative mg/dL (NEG) Urine Blood Negative (NEG) Urine Nitrite Negative (NEG) Urine Bilirubin Negative (NEG) Urine Urobilinogen Dipstick 1.0 mg/dL (0.2 mg/dL) Urine Leukocyte Esterase Negative (NEG) Urine RBC 0 /HPF (0-2) Urine WBC 20-40 /HPF (0-4) Urine Squamous Epithelial Cells Mod /LPF Urine Bacteria Moderate /HPF (0-FEW) Urine Hyaline Casts Moderate /HPF Urine Mucus Mod /LPF Laboratory Tests 07/06/18 15:45 Laboratory Tests 07/06/18 15:45 Microbiology 07/06/18 Urine Culture - Final, Complete 07/06/18 Urine Culture Result 1 (FRANCK) - Final, Complete EKG EKG [] Radiology/Procedures Radiology/Procedures [] Course & Med Decision Making Course & Med Decision Making Pertinent Labs and Imaging studies reviewed. (See chart for details) []The patient was given a fluid bolus in the emergency department. The patient also noted that she is supposed to be taking alcohol was for a small PE that was noted on her CT scan. She states that the pharmacy would not fill the request the wait was written by the doctor's office. I spoke with Dr. Andrea and have rewritten prescriptions. The patient's daughter took those prescriptions while the patient was in the emergency department to the pharmacy and was able to fill them properly. Dragon Disclaimer Dragon Disclaimer This electronic medical record was generated, in whole or in part, using a voice recognition dictation system. Departure Departure Impression: Primary Impression: Pulmonary embolism Additional Impression: Hypotension Disposition: 01 HOME, SELF-CARE Condition: STABLE Referrals: LIZBETH VILLARREAL MD (PCP) Patient Instructions: Hypotension, Pulmonary Embolus Additional Instructions: Take the medication as directed. Follow-up with Dr. Andrea in 2-3 days for recheck. If worsening return to the emergency department immediately. Scripts Apixaban (ELIQUIS) 5 Mg Tablet 5 MG PO BID for pulmonary embolism for 30 Days, #60 TAB Prov: ROSE LEIJARAH Solomon SOFTWARE TE[employer]ER 07/06/18 Apixaban (ELIQUIS) 5 Mg Tablet 10 MG PO BID for pulmonary embolism for 7 Days, #28 TAB Prov: EMMA LEIJA APRN 07/06/18 Problem Qualifiers EMMA LEIJA APRN Jul 06, 2018 16:26
[2018-07-06 16:32] LABS: CALCIUM 9.2 mg/dL (8.5-10.1); CREATININE 0.8 mg/dL (0.6-1.0); GFR 70.9
[2018-07-06 16:34] LABS: BASO % 1 % (0-3); EOS # 0.4 x10^3/uL (0.0-0.7); EOS % 6 % (0-3); HEMATOCRIT 34.2 % (36.0-47.0); HEMOGLOBIN 11.3 g/dL (12.0-15.5); LYMPH # 0.8 x10^3/uL (1.0-4.8); LYMPH % 12 % (24-48); MEAN CORPUSCULAR HEMOGLOBIN 30 pg (25-35); MEAN CORPUSCULAR HGB CONC 33 g/dL (31-37); MEAN CORPUSCULAR VOLUME 89 fL (79-100); MONO # 0.5 x10^3/uL (0.0-1.1); MONO % 8 % (0-9); NEUT % 73 % (31-73); PLATELET COUNT 248 x10^3/uL (140-400); RED BLOOD COUNT 3.84 x10^6/uL (3.50-5.40); RED CELL DISTRIBUTION WIDTH 14.3 % (11.5-14.5); WHITE BLOOD COUNT 6.9 x10^3/uL (4.0-11.0)
[2018-07-06 16:39] LABS: ALBUMIN 3.1 g/dL (3.4-5.0); ALBUMIN/GLOBULIN RATIO 0.8 (1.0-1.7); TOTAL BILIRUBIN 0.4 mg/dL (0.2-1.0); TOTAL PROTEIN 7.2 g/dL (6.4-8.2)
[2018-07-06] MEDS ORDERED: APIXABAN 5 MG TABLET. PO ONE (17:00)
[2018-07-06 18:30] VITALS: BP 145/71
[2018-07-06 19:22] LABS: BILIRUBIN,URINE NEGATIVE (NEG); CLARITY,URINE CLEAR; COLOR,URINE YELLOW; NITRITE,URINE NEGATIVE (NEG); PROTEIN,URINE NEGATIVE (NEG-TRACE)
[2018-07-06 19:27] LABS: BACTERIA,URINE MODERATE /HPF (0-FEW); HYALINE CASTS, URINE MODERATE /HPF; RBC,URINE 0 /HPF (0-2); SQUAMOUS EPITHELIAL CELL,UR MOD /LPF; WBC,URINE 20-40 /HPF (0-4)
== END 2018-07-06 19:54 | disposition home or self-care (01) ==
LOC: ER 15:29
DX: I95.9 Hypotension, unspecified (principal); I26.99 Other pulmonary embolism without acute cor pulmonale; R42 Dizziness and giddiness; I10 Essential (primary) hypertension; Z88.1 Allergy status to other antibiotic agents; Z88.6 Allergy status to analgesic agent; Z88.8 Allergy status to other drugs, medicaments and biological substances
CPT/HCPCS: 36415; 80053; 81001; 85025; 87086; 96360; 96361; 99284; J7030

== ENCOUNTER → 2018-10-03 | Outpatient (CLI) | payer OTHER ==
[~2018-10-03] MED LIST changes: +APIX5TAB PO; +CONTRAST GIVEN. MC PRN
[2018-10-03] MEDS: IOHEXOL 300 MG/ML 100ML VIAL. IV ONE (09:52)
[2018-10-03] MEDS: GADOTERATE 7.5 MMOL/15ML VIAL. IVP ONE (10:24)
--- NOTE | 2018-10-03 10:48 | RAD ---
MRI Brain with and without contrast History: Lung cancer Technique: Multiplanar, multi sequential pre and postcontrast MR imaging was performed of the brain. Comparison: None Findings: There is no evidence of recent infarct or cytotoxic edema. Ventricular size is within normal limits. There is mild prominence of the supratentorial subarachnoid spaces somewhat greater of the parietal lobes likely mild involutional change. There is no significant midline shift, intraaxial mass effect, or focal abnormal extra-axial fluid collection. There is multifocal [id number] T2 and FLAIR hyperintense signal abnormality of the supratentorial parenchyma parenchyma bilaterally not associated with enhancement. There is no nodular parenchymal or leptomeningeal enhancement. There is preservation of the major intracranial flow-voids at the skull base. The cerebellar tonsils are normal in location. There is no significant abnormality of the pineal gland or pituitary gland. Paranasal sinuses are overall aerated. There is minimal fluid and thickening of the right mastoid air cells. There is preserved marrow signal of the clivus. Impression: 1. There is no abnormal intracranial enhancement. There is multifocal T2 and FLAIR hyperintense abnormality of the supratentorial parenchyma, nonspecific findings which may be due to chronic microvascular ischemic disease or component of post therapeutic change. Electronically signed by: Russell Hicks MD (10/03/2018 10:45 AM) [id number]
--- NOTE | 2018-10-03 14:40 | RAD ---
CT of the chest with contrast, 10/03/2018: HISTORY: Follow-up small cell lung cancer Multidetector CT imaging was performed following an IV bolus injection of iodinated contrast material. Comparison is made to a study from 07/05/2018. There is moderate calcific plaquing of the thoracic aorta without evidence of aneurysm. Mild scattered coronary artery calcifications are present. There is a moderate sized hiatal hernia. Several small mediastinal lymph nodes are present without evidence of pathologic enlargement. There is severe emphysema in the lungs. There is moderate peripheral honeycombing bilaterally. There are more prominent streaky pulmonary opacities in the right parahilar region with underlying bronchiectasis, particularly in the right middle lobe. There is a 1.5 cm peripheral nodule in the lateral aspect of the right middle lobe as seen on image 30 of series #2. It demonstrates decreased density centrally. It was not evident on the study of 03/19/2019. It appears to have increased slightly in size since 07/05/2018. No other discrete mass or abnormal fluid collection is seen. There is no evidence of pleural fluid. Moderate multilevel degenerative changes are present in the spine. IMPRESSION: 1. Severe pulmonary emphysema and fibrosis, worst in the right parahilar region. There may be a component of radiation change. 2. Small low-density nodule in the lateral aspect of the right middle lobe which could be inflammatory or represent a necrotic focus of recurrent tumor. CT follow-up is suggested. 3. Additional chronic findings as described above. PQRS Compliance Statement: One or more of the following individualized dose reduction techniques were utilized for this examination: 1. Automated exposure control 2. Adjustment of the mA and/or kV according to patient size 3. Use of iterative reconstruction technique Electronically signed by: Jose Daniel Harris MD (10/03/2018 2:37 PM) [facility]
== END ==
LOC: CT 09:34
PROVIDERS: ATTEND Internal Medicine Hematology & Oncology
DX: C34.91 Malignant neoplasm of unspecified part of right bronchus or lung (principal); C79.31 Secondary malignant neoplasm of brain; K44.9 Diaphragmatic hernia without obstruction or gangrene; J43.9 Emphysema, unspecified; J47.9 Bronchiectasis, uncomplicated; J34.89 Other specified disorders of nose and nasal sinuses; I70.0 Atherosclerosis of aorta; I25.10 Atherosclerotic heart disease of native coronary artery without angina pectoris; R91.1 Solitary pulmonary nodule; M47.814 Spondylosis without myelopathy or radiculopathy, thoracic region
CPT/HCPCS: 70553; 71260; A9575; Q9967